=== PATIENT | male | born 1955 | race Caucasian/White ===

== ENCOUNTER 2017-06-24 16:56 | Emergency (ER) | payer BC ==
[2017-06-24] MEDS ORDERED: Aspirin 81 MG Tab.Chew PO ONE (17:20)
--- NOTE | 2017-06-24 17:28 | EDM.PDOC ---
ED HPI GENERAL MEDICAL PROBLEM - General Chief Complaint: Back Pain or Injury Stated Complaint: PT HAS BACK PAIN Time Seen by Provider: 06/24/17 17:11 Source of Information: Reports: Patient History Limitations: Reports: No Limitations - History of Present Illness INITIAL COMMENTS - FREE TEXT/NARRATIVE: HISTORY AND PHYSICAL: History of present illness: Patient is a 62-year-old male who presents to the emergency room with complaints of mid back pain. He reports that yesterday afternoon he had right anterior chest pain with some nausea that was mild but did not radiate. Woke up this morning and the pain is now in his back towards the left scapula, no nausea. Denies any recent injury or trauma. He states that "I was concerned because I haven't twisted or lifted anything heavy" and has no reason for the muscular pain to be present. Denies any numbness or tingling to his upper or lower extremities. The pain is reproducible and increased with palpation. Denies any fever or chills. Denies shortness of breath. Denies any abdominal pain, nausea, vomiting or diarrhea. 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 Recently saw Dr. Hall at [facility] a few weeks ago and had a full assessment/evaluation. Patient reports that "everything looks good". Takes a 81 mg aspirin daily, did not take that today. Took ibuprofen prior to arrival. Review of systems: As per history of present illness and below otherwise all systems reviewed and negative. Past medical history: As per history of present illness and as reviewed below otherwise noncontributory. Surgical history: As per history of present illness and as reviewed below otherwise noncontributory. Social history: No reported history of drug or alcohol abuse. Family history: As per history of present illness and as reviewed below otherwise noncontributory. Physical exam: Gen.: Nontoxic-appearing 62-year-old male. Well-developed and well-nourished. Alert and oriented. Appears to be in no acute distress. HEENT: Atraumatic, normocephalic, pupils reactive, negative for conjunctival pallor or scleral icterus, mucous membranes moist, throat clear, neck supple, nontender, trachea midline. Lungs: Clear to auscultation, breath sounds equal bilaterally, chest nontender. Heart: S1S2, regular rate and rhythm. Abdomen: Soft, nondistended, nontender. Negative for masses or hepatosplenomegaly. Negative for costovertebral tenderness. Pelvis: Stable nontender. Genitourinary: Deferred. Rectal: Deferred. Extremities: Atraumatic, negative for cords or calf pain. Neurovascular unremarkable. Neuro: Awake, alert, oriented. Cranial nerves II through XII unremarkable. Cerebellum unremarkable. Motor and sensory unremarkable throughout. Exam nonfocal. Labs, EKG, chest x-ray were reviewed with the patient. The patient's health history and presentation today I did offer him admission to rule out SC. Patient declined, he and his both states they feel comfortable going home. We did review risks versus benefits going home. Patient and voice understanding. I do believe that his pain is related to muscular strain. We'll give him one tablet of Flexeril here, as the procedure currently closed. And a prescription for #8 tablets will be prescribed for home. He will follow-up with his primary care provider in the next 1-2 days. He is agreeable to plan of care denies any further questions at this time. Diagnostics: CBC, CMP, troponin, EKG, one view chest x-ray Therapeutics: Aspirin Impression: Muscular strain History of heart disease Plan: 1. You declined admission today. Please monitor your symptoms. Please call an ambulance if your symptoms return or worsen as we discussed. 2. Please take the Flexeril as prescribed. Do not take this medication while needing to drive or function at work as it may cause drowsiness. Apply gentle heat to the area and gentle stretching. 2. Follow-up with your primary care provider in the next 1-2 days. Return to the ED as needed and as discussed. Definitive disposition and diagnosis as appropriate pending reevaluation and review of above. Duration: Day(s): Location: Reports: Back upper back Pain Score (Numeric/FACES): 6 - Related Data Allergies Allergy/AdvReac Type Severity Reaction Status Date / Time metoclopramide HCl Allergy Other Verified 06/24/17 17:04 [From Reglan] morphine Allergy Other Verified 06/24/17 17:04 Home Meds: Home Meds Aspirin [Low Dose Aspirin EC] 81 mg PO DAILY 08/19/14 [History] Atenolol 10 mg PO DAILY 08/19/14 [History] Calcium Carbonate [Calcium] 500 mg PO DAILY 08/19/14 [History] Cinnamon Bark [Cinnamon] 500 mg PO ASDIRECTED 08/19/14 [History] Fish Oil/[place]-3 Fatty Acids [Fish Oil 1,000 MG] 4 tab PO DAILY 08/19/14 [ History] Flaxseed Oil [Flax Oil] 2,000 mg PO DAILY 08/19/14 [History] Magnesium Oxide [Magnesium] 500 mg PO DAILY 08/19/14 [History] Multivitamin [Multivitamins] 1 tab PO DAILY 08/19/14 [History] [place] Extract 250 mg PO DAILY 08/19/14 [History] Tadalafil [Cialis] 1 tab PO ASDIRECTED PRN 08/19/14 [History] Vitamin B Complex 1 tab PO DAILY 08/19/14 [History] atorvaSTATin [Lipitor] 40 mg PO DAILY 08/19/14 [History] Lisinopril 10 mg PO DAILY 06/24/17 [History] Past Medical History Other HEENT History: Tinnitus Cardiovascular History: Reports: Bypass, High Cholesterol, Hypertension, SC Respiratory History: Reports: Other (See Below) Other Respiratory History: Denies any history reports 13 yr history smoking QUIT ' Gastrointestinal History: Reports: GERD Other Gastrointestinal History: Occasional heartburn treat with OTC Pepcid, gastroenteritis Genitourinary History: Reports: Other (See Below) Other Genitourinary History: Erectial Disorder Musculoskeletal History: Reports: Fracture Other Musculoskeletal History: hx: fracturing Right Leg and RIght arm, Nose and cracked some ribs Hematologic History: Reports: Anticoagulation Therapy - Infectious Disease History Infectious Disease History: Reports: Chicken Pox - Past Surgical History Cardiovascular Surgical History: Reports: Coronary Artery Bypass Musculoskeletal Surgical History: Reports: Knee Replacement Other Musculoskeletal Surgeries/Procedures:: broken hip Social & Family History - Family History Family Medical History: Noncontributory Cardiac: Reports: CAD, High Cholesterol, Hypertension, SC - Tobacco Use Smoking Status *Q: Never Smoker Years of Tobacco use: 27 - Caffeine Use Caffeine Use: Reports: None - Alcohol Use Days Per Week of Alcohol Use: 1 - Recreational Drug Use Recreational Drug Use: No Drug Use in Last 12 Months: No ED ROS GENERAL - Review of Systems Review Of Systems: ROS reveals no pertinent complaints other than HPI. ED EXAM, GENERAL - Physical Exam Exam: See Below (See dictation) Course - Vital Signs Last Recorded V/S: Last Vital Signs Temp 37.2 C 06/24/17 17:07 Pulse 84 06/24/17 17:07 Resp 18 06/24/17 17:07 BP 143/70 H 06/24/17 17:07 Pulse Ox 93 L 06/24/17 17:07 - Orders/Labs/Meds Orders: Active Orders 24 hr Category Date Time Status EKG Documentation Completion [RC] STAT Care 06/24/17 17:12 Active Chest 1V Frontal [CR] Stat Exams 06/24/17 17:12 Taken Cyclobenzaprine [Flexeril] Med 06/24/17 19:21 Once 10 mg PO ONETIME ONE Labs: Laboratory Tests 06/24/17 06/24/17 Range/Units 17:19 17:19 WBC 7.89 (4.0-11.0) K/uL RBC 4.92 (4.50-5.90) M/uL Hgb 14.5 (13.0-17.0) g/dL Hct 43.2 (38.0-50.0) % MCV 87.8 (80.0-98.0) fL MCH 29.5 (27.0-32.0) pg MCHC 33.6 (31.0-37.0) g/dL RDW Std Deviation 43.1 (28.0-62.0) fl RDW Coeff of Patricia 14 (11.0-15.0) % Plt Count 218 (150-400) K/uL MPV 10.50 (7.40-12.00) fL Neut % (Auto) 68.1 (48.0-80.0) % Lymph % (Auto) 19.8 (16.0-40.0) % Jennings % (Auto) 9.6 (0.0-15.0) % Eos % (Auto) 2.0 (0.0-7.0) % Baso % (Auto) 0.5 (0.0-1.5) % Neut # (Auto) 5.4 (1.4-5.7) K/uL Lymph # (Auto) 1.6 (0.6-2.4) K/uL Jennings # (Auto) 0.8 (0.0-0.8) K/uL Eos # (Auto) 0.2 (0.0-0.7) K/uL Baso # (Auto) 0.0 (0.0-0.1) K/uL Nucleated RBC % 0.0 /100WBC Nucleated RBCs # 0 K/uL Sodium 141 (136-146) mmol/L Potassium 4.0 (3.5-5.1) mmol/L Chloride 109 (98-110) mmol/L Carbon Dioxide 23 (21-31) mmol/L BUN 23 (6.0-23.0) mg/dL Creatinine 1.2 (0.6-1.5) mg/dL Est Cr Clr Drug Dosing 74.21 mL/min Estimated GFR (MDRD) > 60.0 ml/min Glucose 122 H (60-110) mg/dL Calcium 9.5 (8.8-10.8) mg/dL Total Bilirubin 1.3 (0.1-1.5) mg/dL AST 16 (5-40) IU/L ALT 13 (8-54) IU/L Alkaline Phosphatase 61 (40-150) Troponin I < 0.10 (0.0-0.29) NG/ML Total Protein 6.9 (6.0-8.0) g/dL Albumin 3.9 (3.4-4.8) g/dL Globulin 3.0 (2.0-3.5) g/dL Albumin/Globulin Ratio 1.3 (1.3-2.8) Meds: Medications Discontinued Medications Generic Name Dose Route Start Last Admin Trade Name Freq PRN Reason Stop Dose Admin Aspirin 324 mg 06/24/17 17:20 06/24/17 17:26 Aspirin PO 06/24/17 17:21 324 mg ONETIME ONE Administration Departure - Departure Time of Disposition: 19:20 Disposition: Home, Self-Care 01 Condition: Good Clinical Impression: Muscle strain, History of heart disease - Discharge Information Instructions: Muscle Strain, [id number] Referrals: PCP,None [Primary Care Provider] - Forms: ED Department Discharge Additional Instructions: My general discharge The following information is given to patients seen in the emergency department who are being discharged to home. This information is to outline your options for follow-up care. We provide all patients seen in our emergency department with a follow-up referral. The need for follow-up, as well as the timing and circumstances, are variable depending upon the specifics of your emergency department visit. If you don't have a primary care physician on staff, we will provide you with a referral. We always advise you to contact your personal physician following an emergency department visit to inform them of the circumstance of the visit and for follow-up with them and/or the need for any referrals to a consulting specialist. The emergency department will also refer you to a specialist when appropriate. This referral assures that you have the opportunity for follow-up care with a specialist. All of these measure are taken in an effort to provide you with optimal care, which includes your follow-up. Under all circumstances we always encourage you to contact your private physician who remains a resource for coordinating your care. When calling for follow-up care, please make the office aware that this follow-up is from your recent emergency room visit. If for any reason you are refused follow-up, please contact the Emergency Department at and asked to speak to the emergency department charge nurse. Primary Care [address] [place] [address] 1. You declined admission today. Please monitor your symptoms. Please call an ambulance if your symptoms return or worsen as we discussed. 2. Please take the Flexeril as prescribed. Do not take this medication while needing to drive or function at work as it may cause drowsiness. Apply gentle heat to the area and gentle stretching. 2. Follow-up with your primary care provider in the next 1-2 days. Return to the ED as needed and as discussed. - My Orders Last 24 Hours: My Active Orders 06/24/17 17:12 EKG Documentation Completion [RC] STAT Chest 1V Frontal [CR] Stat 06/24/17 19:21 Cyclobenzaprine [Flexeril] 10 mg PO ONETIME ONE - Assessment/Plan Last 24 Hours: My Active Orders 06/24/17 17:12 EKG Documentation Completion [RC] STAT Chest 1V Frontal [CR] Stat 06/24/17 19:21 Cyclobenzaprine [Flexeril] 10 mg PO ONETIME ONE
[2017-06-24 17:44] LABS: CHLORIDE,CL 109 mmol/L (98-110); SODIUM,NA 141 mmol/L (136-146)
[2017-06-24] MEDS ORDERED: Cyclobenzaprine 10 MG Tab PO ONE (19:21)
[2017-06-24 19:51] VITALS: BP 118/75
--- NOTE | 2017-06-25 16:18 | CR ---
EXAM DATE: 06/24/17 PATIENT'S AGE: 62 Patient: GRETA RIDLEY Facility: [place], [place] Site . Site : 1955 Study: XRay Chest [id number] 6:11:47 PM Ordering Physician: Doctor Jenkins Final Report: INDICATION: upper back pain TECHNIQUE: Chest radiograph 1 view COMPARISON: None FINDINGS: Moderate degradation of image quality noted due to body habitus. Cardiovascular and mediastinum: The cardiac silhouette is normal in appearance and size. Mediastinum is within normal limits. Previous median sternotomy and coronary artery bypass grafting (CABG) noted. Lungs and pleural spaces: Both lungs are unremarkable in appearance. No sign of pleural effusion. No pneumothorax is seen. Bones and soft tissues: No significant findings. IMPRESSION: 1. No acute cardiopulmonary disease seen. Dictated by: Gary Velazco MD @ 06/24/2017 18:45:04 (Electronic Signature) Report Signed by Proxy. ZOEY
== END 2017-06-24 20:04 | disposition home or self-care (01) ==
LOC: MW.ED 16:56
DX: S29.012A Strain of muscle and tendon of back wall of thorax, initial encounter (principal); I11.9 Hypertensive heart disease without heart failure; Z88.5 Allergy status to narcotic agent; Z88.8 Allergy status to other drugs, medicaments and biological substances; Z79.82 Long term (current) use of aspirin; Z79.899 Other long term (current) drug therapy; X58.XXXA Exposure to other specified factors, initial encounter
CPT/HCPCS: 36415; 71010; 80053; 84484; 85025; 93005; 99284; A9270; 99282

== ENCOUNTER 2018-01-17 10:21 | Day surgery (SDC) | payer BC ==
[~2018-01-17 10:21] MED LIST: Lactated Ringers 1,000 ML IV SCH; Midazolam 1 MG/ML 2 ML SDV ONE; Propofol 200 MG/20 ML SDV ONE; fentaNYL 100 MCG/2 ML SDV ONE
--- NOTE | 2018-01-17 10:57 | PCM.PREANE ---
Preanesthetic Assessment - Anesthesia/Transfusion/Family Hx Anesthesia History: Prior Anesthesia Without Reaction Other Type of Anesthesia Reaction Comment: Denies any known problem in past, "mild problem with motion sickness" Family History of Anesthesia Reaction: No Transfusion History: Prior Transfusion Without Reaction Intubation History: Unknown - Review of Systems General: No Symptoms Pulmonary: No Symptoms Cardiovascular: No Symptoms Gastrointestinal: No Symptoms, Other (screening colonoscopy) Neurological: No Symptoms Other: Reports: None - Physical Assessment Height: 1.88 m Weight: 127.006 kg ASA Class: 2 Mental Status: Alert & Oriented x3 Airway Class: Mallampati = 2 Dentition: Reports: Normal Dentition Thyro-Mental Finger Breadths: 3 Mouth Opening Finger Breadths: 3 ROM/Head Extension: Full Lungs: Clear to Auscultation, Normal Respiratory Effort Cardiovascular: Regular Rate, Regular Rhythm - Allergies Allergies/Adverse Reactions: Allergies Allergy/AdvReac Type Severity Reaction Status Date / Time metoclopramide HCl Allergy Other Verified 01/14/18 09:33 [From Reglan] morphine Allergy Other Verified 01/14/18 09:33 - Blood Blood Available: No - Anesthesia Plan Pre-Op Medication Ordered: None - Acknowledgements Anesthesia Type Planned: MAC Pt an Appropriate Candidate for the Planned Anesthesia: Yes Alternatives and Risks of Anesthesia Discussed w Pt/Guardian: Yes Pt/Guardian Understands and Agrees with Anesthesia Plan: Yes PreAnesthesia Questionnaire HEENT History: Reports: Other (See Below) Other HEENT History: wears glasses Cardiovascular History: Reports: Bypass, CAD, High Cholesterol, Hypertension, DC Other Cardiovascular History: CABG 1998 Respiratory History: Reports: Sleep Apnea, Other (See Below) Other Respiratory History: uses CPAP Gastrointestinal History: Reports: None Genitourinary History: Reports: None Musculoskeletal History: Reports: Arthritis, Fracture Other Musculoskeletal History: hx: fracturing Right Leg and RIght arm, Nose and cracked some ribs Endocrine/Metabolic History: Reports: Obesity/BMI 30+ Hematologic History: Reports: Blood Transfusion(s), Other (See Below) Other Hematologic History: states "bleeds easily" - Infectious Disease History Infectious Disease History: Reports: Chicken Pox - Past Surgical History Head Surgeries/Procedures: Reports: None Cardiovascular Surgical History: Reports: Coronary Artery Bypass Other Cardiovascular Surgeries/Procedures: 3 bypasses Musculoskeletal Surgical History: Reports: Knee Replacement Other Musculoskeletal Surgeries/Procedures:: broken hip, left knee replacement - SUBSTANCE USE Smoking Status *Q: Former Smoker Tobacco Use Within Last Twelve Months: No Other Tobacco Use Within Last Twelve Months: SMoked for about 13 yrs, QUIT '87 Days Per Week of Alcohol Use: 1 Recreational Drug Use History: No - HOME MEDS Home Medications: Home Meds Aspirin [Low Dose Aspirin EC] 81 mg PO DAILY 08/19/14 [History] Atenolol 12.5 mg PO BEDTIME 08/19/14 [History] Calcium Carbonate [Calcium] 500 mg PO DAILY 08/19/14 [History] Cinnamon Bark [Cinnamon] 500 mg PO ASDIRECTED 08/19/14 [History] Fish Oil/[place]-3 Fatty Acids [Fish Oil 1,000 MG] 4 tab PO DAILY 08/19/14 [ History] Flaxseed Oil [Flax Oil] 1,200 mg PO DAILY 08/19/14 [History] Magnesium Oxide [Magnesium] 500 mg PO DAILY 08/19/14 [History] Multivitamin [Multivitamins] 1 tab PO DAILY 08/19/14 [History] [place] Extract 250 mg PO DAILY 08/19/14 [History] Tadalafil [Cialis] 1 tab PO ASDIRECTED PRN 08/19/14 [History] Vitamin B Complex 1 tab PO DAILY 08/19/14 [History] atorvaSTATin [Lipitor] 40 mg PO DAILY 08/19/14 [History] Lisinopril 10 mg PO DAILY 06/24/17 [History] - CURRENT (IN HOUSE) MEDS Current Meds: Current Medications Lactated Ringer's (Ringers, Lactated) 1,000 mls @ 125 mls/hr IV ASDIRECTED GENTRY Discontinued Medications Fentanyl (Sublimaze) Confirm Administered Dose 100 mcg .ROUTE .STK-MED ONE Stop: 01/17/18 08:46 Midazolam HCl (Versed 1 Mg/Ml) Confirm Administered Dose 2 mg .ROUTE .STK-MED ONE Stop: 01/17/18 08:46 Propofol (Diprivan 20 Ml) Confirm Administered Dose 200 mg .ROUTE .STK-MED ONE Stop: 01/17/18 08:46
[2018-01-17] MEDS ORDERED: Propofol 200 MG/20 ML SDV ONE (11:19)
--- NOTE | 2018-01-17 11:43 | PCM.OPNOTE ---
- General Post-Op/Procedure Note Date of Surgery/Procedure: 01/17/18 Operative Procedure(s): colonoscopy w bx Findings: see dict [id number] Pre Op Diagnosis: scrn colonoscopy Post-Op Diagnosis: Same Anesthesia Technique: Moderate Sedation Primary Surgeon: Fox Hill Pathology: 2 mm sessile polyp at dist 80cm, 90cm when scope went out; and aphthus ulcer bx at rectum, and anal tag bx at annus Complications: None Condition: Good
--- NOTE | 2018-01-17 11:46 | PCM.POSTAN ---
POST ANESTHESIA ASSESSMENT - MENTAL STATUS Mental Status: Alert, Oriented - RESPIRATORY Respiratory Status: Respiratory Rate WNL, Airway Patent, O2 Saturation Stable - CARDIOVASCULAR CV Status: Pulse Rate WNL, Blood Pressure Stable - GASTROINTESTINAL GI Status: No Symptoms - POST OP HYDRATION Hydration Status: Adequate & Stable
--- NOTE | 2018-01-17 12:13 | PCM48HPAN ---
Post Anesthesia Note - EVALUATION WITHIN 48HRS OF ANESTHETIC Vital Signs in Normal Range: Yes Patient Participated in Evaluation: Yes Respiratory Function Stable: Yes Airway Patent: Yes Cardiovascular Function Stable: Yes Hydration Status Stable: Yes Pain Control Satisfactory: Yes Nausea and Vomiting Control Satisfactory: Yes Mental Status Recovered: Yes Resp Rate: 8 - COMMENTS/OBSERVATIONS Free Text/Narrative:: no anesthesia problems
[2018-01-17 12:34] VITALS: BP 103/63
--- NOTE | 2018-01-17 13:16 | OR ---
SURGEON: Fox Hill MD DATE OF PROCEDURE: 01/17/2018 PREOPERATIVE DIAGNOSIS: Screening colonoscopy. POSTOPERATIVE DIAGNOSIS: Colon polyp. PROCEDURE PERFORMED: Colonoscopy with biopsy. PROCEDURE IN DETAIL: The patient was taken to the endoscopy room. A time out was called, patient identified, and procedure identified. Diprivan was then administrated. Patient went from awake to sleep, hearing doctor talking or door closing is normal. Perineum inspection and digital examination were then performed. A well- lubricated colonoscope was gently inserted through the rectum, advanced past the rectosigmoid junction, the descending colon, splenic flexure, transverse colon, hepatic flexure, ascending colon, arrived to the cecum. Cecum was identified as dictated in the finding. Then the scope was carefully withdrawn while attention was paid to the mucosal surface for any abnormality. Air will be sucked out during the scope withdrawal. At the rectum, retroflexed to examine any rectal diseases, fistula or hemorrhoids. During mucosal examination, biopsy performed. Patient tolerated procedure well. There were no intraoperative complications, and Dr. Hill was present throughout the whole procedure. FINDINGS: 1. The patient is easily sedated with REFINING ENGINEER and Diprivan. The patient is soundly snoring. 2. Bowel prep is left to be desirable, marginally acceptable. Large amount of particles of stool is opaque and compromised study because of the bowel prep. Colon is rather straight forward. Cecum indicated by ileocecal fold, one-to-one indentation, and appendiceal orifice. Light emittance is not observed. Mucosa examined upon scope pulling out with constant irrigation. The patient has two small polyp sessile less than 1 to 2 mm at distance 80 and 90 cm when scope pulling out. Again, this is compromised study because they are many many particles of stool opaque and compromised study and despite constant irrigation. The two polyps mentioned are removed with cold biopsy forceps. There was no diverticulosis inflammation, ulceration, bleeding, AV malformation, growth, mass, none of those. The patient has external hemorrhoid moderate and also semi large and no tag that was biopsied too; and at the end around 20 cm distance of the scope close to the rectum area, there are several aphthous ulcers and were biopsied to evaluate thing, favorable. The patient will repeat colonoscopy in 10 years from today or if clinically indicated otherwise. ROYA / MARK /[id number]
== END 2018-01-17 12:00 | disposition home or self-care (01) ==
LOC: MW.SDS 10:21
PROVIDERS: ATTEND Surgery
DX: Z12.11 Encounter for screening for malignant neoplasm of colon (principal); D12.4 Benign neoplasm of descending colon; D12.3 Benign neoplasm of transverse colon; K63.89 Other specified diseases of intestine; K64.4 Residual hemorrhoidal skin tags; I10 Essential (primary) hypertension; I25.10 Atherosclerotic heart disease of native coronary artery without angina pectoris; I25.2 Old myocardial infarction; E78.00 Pure hypercholesterolemia, unspecified; G47.30 Sleep apnea, unspecified; Z99.89 Dependence on other enabling machines and devices; M19.90 Unspecified osteoarthritis, unspecified site; Z79.82 Long term (current) use of aspirin; Z79.899 Other long term (current) drug therapy; Z88.5 Allergy status to narcotic agent; Z88.8 Allergy status to other drugs, medicaments and biological substances
CPT/HCPCS: 45380; J2250; J3010; J7120; 00811; J2704

== ENCOUNTER 2019-11-19 01:31 | Observation (INO) | payer BC ==
[2019-11-19] MEDS ORDERED: Sodium Chloride 0.9% 2.5 ML Syringe FLUSH PRN (01:40)
[2019-11-19] MEDS ORDERED: Sodium Chloride 0.9% 10 ML Syringe FLUSH PRN (01:40)
[2019-11-19] MEDS ORDERED: Aspirin 81 MG Tab.Chew PO ONE (01:40)
--- NOTE | 2019-11-19 01:47 | EDM.PDOC ---
ED HPI GENERAL MEDICAL PROBLEM - General Chief Complaint: Chest Pain Stated Complaint: CHEST PAIN Time Seen by Provider: 11/19/19 01:32 Source of Information: Reports: Patient History Limitations: Reports: No Limitations - History of Present Illness INITIAL COMMENTS - FREE TEXT/NARRATIVE: HISTORY OF PRESENT ILLNESS: Patient is a 64-year-old male with history of coronary artery disease status post three-vessel CABG in 1998, hypertension, hyperlipidemia who presents the ER with chest pain. Patient states that he had left parasternal chest pain on Sunday night into Sunday morning which resolved spontaneously. This evening at approximately 10:30 pm began having right lateral mid axillary chest pain which is waxing and waning in nature and was 8 out of 10 at maximal severity and presently 4 out of 10 in severity. He took aspirin 81 mg. Denies any associated dyspnea, nausea, vomiting, or diaphoresis. Patient has a family history of coronary artery disease. He is not a smoker. Denies any abdominal pain or syncope. No recent illness. Has otherwise been in normal state of health. No recent trauma Denies any leg pain, unilateral swelling or history of thromboembolic disease. REVIEW OF SYSTEMS: Other than the symptoms associated with the present events, the following is reported with regard to recent health: General: (-) fever. HENT: (-) congestion. Respiratory: (-) cough. Cardiovascular: (-) chest pain. GI: (-) abdominal pain. : (-) urinary complaints. Musculoskeletal: (-) other aches or pains. Endocrine: (-) generalized weakness. Neurological: (-) localized weakness. Skin: (-) rash PAST MEDICAL HISTORY: reviewed as per nursing notes SOCIAL HISTORY: reviewed as per nursing notes, MEDICATIONS: Per nurse's note ALLERGIES: Per nurse's note, reviewed by me PHYSICAL EXAMINATION: GENERALIZED APPEARANCE: well developed, well nourished in mild distress VITAL SIGNS: Per nurse's note, reviewed by me SKIN: Warm, dry; (-) cyanosis; (-) rash. HEAD: (-) scalp swelling, (-) tenderness. EYES: (-) conjunctival pallor, (-) scleral icterus. ENMT: (-) stridor; mucous membranes moist. NECK: (-) tenderness, (-) stiffness, CHEST AND RESPIRATORY: (-) rales, (-) rhonchi, (-) wheezes; breath sounds equal bilaterally. right midaxillary chest wall tenderness. no crepitus. HEART AND CARDIOVASCULAR: (-) irregularity; (-) murmur, (-) gallop. ABDOMEN AND GI: Soft; (-) tenderness, (-) guarding, (-) rebound, (-) palpable masses, EXTREMITIES: (-) deformity, (-) edema. NEURO AND PSYCH: Alert. Cranial nerves grossly intact; strength symmetric. gait steady DIAGNOSTICS: EKG: sr at [address] elevation. t wave inversion iii avf. CXR: as read by radiologist, reviewed by myself Labs ordered and reviewed, troponin wnl EMERGENCY DEPARTMENT COURSE AND TREATMENT: Patient's condition remained stable during Emergency Department evaluation. Given remaining 243 mg of ASA for a total dose of 324 mg this evening. Given NTG 0.4 mg SL. First troponin negative and EKG without acute MOIZ. Case discussed with Dr. Francis who kindly agrees to admit. PLAN AND FOLLOW-UP: Admit chest Pain Score (Numeric/FACES): 4 - Related Data Allergies Allergy/AdvReac Type Severity Reaction Status Date / Time metoclopramide HCl Allergy Other Verified 11/19/19 01:49 [From Reglan] morphine Allergy Other Verified 11/19/19 01:49 Home Meds: Home Meds Calcium Carbonate [Calcium] 500 mg PO DAILY 08/19/14 [History] Cinnamon Bark [Cinnamon] 500 mg PO ASDIRECTED 08/19/14 [History] Fish Oil/[place]-3 Fatty Acids [Fish Oil 1,000 MG] 1 gm PO DAILY 08/19/14 [History ] Flaxseed Oil [Flax Oil] 1,000 mg PO DAILY 08/19/14 [History] Magnesium Oxide [Magnesium] 500 mg PO DAILY 08/19/14 [History] Multivitamin [Multivitamins] 1 tab PO DAILY 08/19/14 [History] [place] Extract 250 mg PO DAILY 08/19/14 [History] Vitamin B Complex 1 tab PO DAILY 08/19/14 [History] atenoloL [Atenolol] 12.5 mg PO BEDTIME 08/19/14 [History] atorvaSTATin [Lipitor] 40 mg PO BEDTIME 08/19/14 [History] Lisinopril 10 mg PO QPM 06/24/17 [History] Past Medical History HEENT History: Reports: Other (See Below) Other HEENT History: wears glasses Cardiovascular History: Reports: Bypass, CAD, High Cholesterol, Hypertension, [place] Other Cardiovascular History: CABG 1998 Respiratory History: Reports: Sleep Apnea, Other (See Below) Other Respiratory History: uses CPAP Gastrointestinal History: Reports: None Genitourinary History: Reports: None Musculoskeletal History: Reports: Arthritis, Fracture Other Musculoskeletal History: hx: fracturing Right Leg and RIght arm, Nose and cracked some ribs Endocrine/Metabolic History: Reports: Obesity/BMI 30+ Hematologic History: Reports: Blood Transfusion(s), Other (See Below) Other Hematologic History: states "bleeds easily" - Infectious Disease History Infectious Disease History: Reports: Chicken Pox - Past Surgical History Head Surgeries/Procedures: Reports: None Cardiovascular Surgical History: Reports: Coronary Artery Bypass Other Cardiovascular Surgeries/Procedures: OLIVIER 3 bypasses Musculoskeletal Surgical History: Reports: Knee Replacement Other Musculoskeletal Surgeries/Procedures:: broken hip, left knee replacement Social & Family History - Family History Family Medical History: Noncontributory Cardiac: Reports: CAD, High Cholesterol, Hypertension, [place] - Caffeine Use Caffeine Use: Reports: None ED ROS GENERAL - Review of Systems Review Of Systems: See Below (see dictation) ED EXAM, GENERAL - Physical Exam Exam: See Below (see dictation) Course - Vital Signs Last Recorded V/S: Last Vital Signs Temp 96.5 F L 11/19/19 01:31 Pulse 73 11/19/19 01:46 Resp 18 11/19/19 01:46 BP 136/81 11/19/19 01:46 Pulse Ox 96 11/19/19 01:46 - Orders/Labs/Meds Orders: Active Orders 24 hr Category Date Time Status Cardiac Monitoring [RC] . DIRECTED Care 11/19/19 01:40 Active EKG Documentation Completion [RC] STAT Care 11/19/19 01:40 Active Pulse Oximetry [RC] ASDIRECTED Care 11/19/19 01:40 Active COMPREHENSIVE METABOLIC PN,CMP [CHEM] Stat Lab 11/19/19 01:42 Results TROPONIN I [CHEM] Stat Lab 11/19/19 01:42 Results Sodium Chloride 0.9% [Saline Flush] Med 11/19/19 01:40 Active 10 ml FLUSH ASDIRECTED PRN Sodium Chloride 0.9% [Saline Flush] Med 11/19/19 01:40 Active 2.5 ml FLUSH ASDIRECTED PRN Saline Lock Insert [OM.PC] Stat Oth 11/19/19 01:40 Ordered Medication Orders Sodium Chloride (Saline Flush) 10 ml FLUSH ASDIRECTED PRN PRN Reason: Keep Vein Open Sodium Chloride (Saline Flush) 2.5 ml FLUSH ASDIRECTED PRN PRN Reason: Keep Vein Open Labs: Laboratory Tests 11/19/19 11/19/19 Range/Units 01:42 01:42 WBC 9.28 (4.0-11.0) K/uL RBC 4.97 (4.50-5.90) M/uL Hgb 14.4 (13.0-17.0) g/dL Hct 44.0 (38.0-50.0) % MCV 88.5 (80.0-98.0) fL MCH 29.0 (27.0-32.0) pg MCHC 32.7 (31.0-37.0) g/dL RDW Std Deviation 43.2 (28.0-62.0) fl RDW Coeff of Patricia 13 (11.0-15.0) % Plt Count 232 (150-400) K/uL MPV 11.30 (7.40-12.00) fL Neut % (Auto) 53.3 (48.0-80.0) % Lymph % (Auto) 33.3 (16.0-40.0) % [place] % (Auto) 10.9 (0.0-15.0) % Eos % (Auto) 1.9 (0.0-7.0) % Baso % (Auto) 0.6 (0.0-1.5) % Neut # (Auto) 4.9 (1.4-5.7) K/uL Lymph # (Auto) 3.1 H (0.6-2.4) K/uL [place] # (Auto) 1.0 H (0.0-0.8) K/uL Eos # (Auto) 0.2 (0.0-0.7) K/uL Baso # (Auto) 0.1 (0.0-0.1) K/uL Nucleated RBC % 0.0 /100WBC Nucleated RBCs # 0 K/uL Sodium 141 (136-148) mmol/L Potassium 3.8 (3.5-5.1) mmol/L Chloride 103 (98-107) mmol/L Carbon Dioxide 25.7 (21.0-32.0) mmol/L BUN 28 H (7.0-18.0) mg/dL Creatinine 1.4 H (0.8-1.3) mg/dL Est Cr Clr Drug Dosing 58.51 mL/min Estimated GFR (MDRD) 51.0 ml/min Glucose 134 H (74-106) mg/dL Calcium 8.9 (8.5-10.1) mg/dL Total Bilirubin 0.7 (0.2-1.0) mg/dL ALT 27 (14-63) IU/L Alkaline Phosphatase 70 (46-116) U/L Troponin I < 0.050 (0.000-0.056) ng/mL Total Protein 6.6 (6.4-8.2) g/dL Albumin 3.3 L (3.4-5.0) g/dL Globulin 3.3 (2.6-4.0) g/dL Albumin/Globulin Ratio 1.0 (0.9-1.6) Meds: Medications Generic Name Dose Route Start Last Admin Trade Name Freq PRN Reason Stop Dose Admin Sodium Chloride 10 ml 11/19/19 01:40 Saline Flush FLUSH ASDIRECTED PRN Keep Vein Open Sodium Chloride 2.5 ml 11/19/19 01:40 Saline Flush FLUSH ASDIRECTED PRN Keep Vein Open Discontinued Medications Generic Name Dose Route Start Last Admin Trade Name Freq PRN Reason Stop Dose Admin Aspirin 243 mg 11/19/19 01:40 11/19/19 01:45 Aspirin PO 11/19/19 01:41 243 mg ONETIME ONE Administration Nitroglycerin 0.4 mg 11/19/19 02:20 Nitrostat SL 11/19/19 02:21 ONETIME ONE Departure - Departure Time of Disposition: 02:31 Disposition: Refer to Observation Condition: Good Clinical Impression: Chest pain - Discharge Information Forms: ED Department Discharge Sepsis Event Note - Focused Exam Vital Signs: Vital Signs Temp Pulse Resp BP BP Pulse Ox 11/19/19 01:46 73 18 136/81 96 11/19/19 01:31 96.5 F L 73 20 153/94 H 96 Date Exam was Performed: 11/19/19 Time Exam was Performed: 02:22 - My Orders Last 24 Hours: My Active Orders 11/19/19 01:40 Cardiac Monitoring [RC] . DIRECTED EKG Documentation Completion [RC] STAT Pulse Oximetry [RC] ASDIRECTED Sodium Chloride 0.9% [Saline Flush] 10 ml FLUSH ASDIRECTED PRN Sodium Chloride 0.9% [Saline Flush] 2.5 ml FLUSH ASDIRECTED PRN Saline Lock Insert [OM.PC] Stat 11/19/19 01:42 COMPREHENSIVE METABOLIC PN,CMP [CHEM] Stat TROPONIN I [CHEM] Stat - Assessment/Plan Last 24 Hours: My Active Orders 11/19/19 01:40 Cardiac Monitoring [RC] . DIRECTED EKG Documentation Completion [RC] STAT Pulse Oximetry [RC] ASDIRECTED Sodium Chloride 0.9% [Saline Flush] 10 ml FLUSH ASDIRECTED PRN Sodium Chloride 0.9% [Saline Flush] 2.5 ml FLUSH ASDIRECTED PRN Saline Lock Insert [OM.PC] Stat 11/19/19 01:42 COMPREHENSIVE METABOLIC PN,CMP [CHEM] Stat TROPONIN I [CHEM] Stat
--- NOTE | 2019-11-19 02:01 | CR ---
INDICATION: Chest pain TECHNIQUE: Frontal view of the chest. COMPARISON: None FINDINGS: The lungs are clear. There is no sizable pleural effusion or pneumothorax. The cardiomediastinal silhouette is normal. Sternotomy wires and mediastinal clips are noted, suggesting prior CABG. IMPRESSION: No acute intrathoracic process. Dictated by Marjan Dee MD @ Nov 19 2019 2:00AM Signed by Dr. Marjan Dee @ Nov 19 2019 2:00AM
[2019-11-19 02:14] LABS: BLOOD UREA NITROGEN,BUN 28 mg/dL (7.0-18.0); CARBON DIOXIDE,CO2 25.7 mmol/L (21.0-32.0); CHLORIDE,CL 103 mmol/L (98-107); GLUCOSE RANDOM 134 mg/dL (74-106); POTASSIUM,K 3.8 mmol/L (3.5-5.1); SODIUM,NA 141 mmol/L (136-148)
[2019-11-19] MEDS ORDERED: Nitroglycerin 0.4 MG Tab.SL SL ONE (02:20)
[2019-11-19] MEDS ORDERED: Acetaminophen 325 MG Tab PO PRN (03:10)
[2019-11-19 08:57] LABS: HEMOGLOBIN A1C 5.9 % (4.5-6.2)
--- NOTE | 2019-11-19 09:10 | PCM.HP.2 ---
H&P History of Present Illness - General Date of Service: 11/19/19 Admit Problem/Dx: Admission Diagnosis/Problem Admission Diagnosis/Problem Chest pain Source of Information: Patient History Limitations: Reports: No Limitations - History of Present Illness Initial Comments - Free Text/Narative: This 64 year old male with pmh of 3 vessel CABG in 1998, HTN, HLD, CAD presented to the ED with complaints of chest pain that started initially Sunday evening. He reports the pain is waxing and waning and has moved from initially L chest and axilla to upper back and neck to now R axilla. Axilla regions are tender to movement and palpation per his reports. He denies other associated symptoms such as diaphoresis, dyspnea or nausea. Denies injury or repetitive movements. He denies abdominal pain, diarrhea or constipation. He denies focal neurological deficits. He denies fevers, chills, congestion or URI symptoms. No cough or dyspnea. He denies tobacco use, rare alcohol use, and no recreational drug use. In the ED no leukocytosis noted, BUN 28 and Cr 1.4. Glucose 134, A1c 5.9. Troponin negative. EKG SR with no acute ST changes. He was given ASA in the ED and Nitro SL. No real improvement in pain. He will be admitted for chest pain rule out ACS. 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 Pain Score (Numeric/FACES): 4 R mid axilla Pain Score (Numeric/FACES): 2 - Related Data Allergies/Adverse Reactions: Allergies Allergy/AdvReac Type Severity Reaction Status Date / Time metoclopramide HCl Allergy Other Verified 11/19/19 01:49 [From Reglan] morphine Allergy Other Verified 11/19/19 01:49 Home Medications: Home Meds Calcium Carbonate [Calcium] 500 mg PO DAILY 08/19/14 [History] Cinnamon Bark [Cinnamon] 500 mg PO ASDIRECTED 08/19/14 [History] Fish Oil/[place]-3 Fatty Acids [Fish Oil 1,000 MG] 1 gm PO DAILY 08/19/14 [History ] Flaxseed Oil [Flax Oil] 1,000 mg PO DAILY 08/19/14 [History] Magnesium Oxide [Magnesium] 500 mg PO DAILY 08/19/14 [History] Multivitamin [Multivitamins] 1 tab PO DAILY 08/19/14 [History] [place] Extract 250 mg PO DAILY 08/19/14 [History] Vitamin B Complex 1 tab PO DAILY 08/19/14 [History] atenoloL [Atenolol] 12.5 mg PO BEDTIME 08/19/14 [History] atorvaSTATin [Lipitor] 40 mg PO BEDTIME 08/19/14 [History] Lisinopril 10 mg PO QPM 06/24/17 [History] Past Medical History HEENT History: Reports: Other (See Below) Other HEENT History: wears glasses Cardiovascular History: Reports: Bypass, CAD, High Cholesterol, Hypertension, [place]. Denies: Afib Other Cardiovascular History: CABG 1998 Respiratory History: Reports: Sleep Apnea, Other (See Below) Other Respiratory History: uses CPAP Gastrointestinal History: Reports: None Genitourinary History: Reports: None Musculoskeletal History: Reports: Arthritis, Fracture Other Musculoskeletal History: hx: fracturing Right Leg and RIght arm, Nose and cracked some ribs Endocrine/Metabolic History: Reports: Obesity/BMI 30+ Hematologic History: Reports: Blood Transfusion(s), Other (See Below) Other Hematologic History: had BT post Surgery - Infectious Disease History Infectious Disease History: Reports: Chicken Pox - Past Surgical History Head Surgeries/Procedures: Reports: None Cardiovascular Surgical History: Reports: Coronary Artery Bypass Other Cardiovascular Surgeries/Procedures: CABG 3 vessels Respiratory Surgical History: Reports: None Musculoskeletal Surgical History: Reports: Knee Replacement Other Musculoskeletal Surgeries/Procedures:: broken hip, left knee replacement Social & Family History - Family History Family Medical History: Noncontributory Cardiac: Reports: CAD, High Cholesterol, Hypertension, [place] - Tobacco Use Smoking Status *Q: Former Smoker Years of Tobacco use: 10 Packs/Tins Daily: 1 Used Tobacco, but Quit: Yes Month/Year Tobacco Last Used: 1986 Second Hand Smoke Exposure: No - Caffeine Use Caffeine Use: Reports: None - Alcohol Use Alcohol Use History: No - Recreational Drug Use Recreational Drug Use: No H&P Review of Systems - Review of Systems: Review Of Systems: See Below General: Denies: Fever, Chills, Malaise, Weakness HEENT: Reports: No Symptoms. Denies: Headaches, Sore Throat, Vertigo Pulmonary: Reports: No Symptoms. Denies: Shortness of Breath, Cough, Sputum Cardiovascular: Reports: No Symptoms. Denies: Chest Pain, Dyspnea on Exertion, Orthopnea, Edema Gastrointestinal: Reports: No Symptoms. Denies: Abdominal Pain, Black Stool, Bloody Stool, Hematochezia, Nausea Genitourinary: Reports: No Symptoms. Denies: Dysuria, Frequency Musculoskeletal: Reports: Neck Pain (upper back and R and L axilla) Psychiatric: Reports: No Symptoms Neurological: Reports: No Symptoms Hematologic/Lymphatic: Reports: No Symptoms Immunologic: Reports: No Symptoms Exam - Exam Exam: See Below - Vital Signs Vital Signs: Last Vital Signs Temp 97.1 F 11/19/19 03:01 Pulse 68 11/19/19 08:15 Resp 16 11/19/19 08:15 BP 106/58 L 11/19/19 08:15 Pulse Ox 95 11/19/19 08:15 Weight: 128.548 kg - Exam General: Alert, Oriented, Cooperative HEENT: Conjunctiva Clear, Mucosa Moist & [place], Pupils Equal Neck: Supple, Other (no nuchal rigidity) Lungs: Clear to Auscultation, Normal Respiratory Effort Cardiovascular: Regular Rate, Regular Rhythm GI/Abdominal Exam: Normal Bowel Sounds, Soft, Non-Tender Extremities: Normal Inspection, Normal Range of Motion, No Pedal Edema, Other ( tenderness to R and L axilla and upper back/neck. ) Neuro Extensive - Mental Status: Alert, Oriented x3 Neuro Extensive - Motor, Sensory, Reflexes: CN II-XII Intact, Normal Gait Psychiatric: Alert, Normal Affect, Normal Mood - Patient Data Lab Results Last 24 hrs: Laboratory Results - last 24 hr 11/19/19 11/19/19 11/19/19 Range/Units 01:42 01:42 01:42 WBC 9.28 (4.0-11.0) K/uL RBC 4.97 (4.50-5.90) M/uL Hgb 14.4 (13.0-17.0) g/dL Hct 44.0 (38.0-50.0) % MCV 88.5 (80.0-98.0) fL MCH 29.0 (27.0-32.0) pg MCHC 32.7 (31.0-37.0) g/dL RDW Std Deviation 43.2 (28.0-62.0) fl RDW Coeff of [place] 13 (11.0-15.0) % Plt Count 232 (150-400) K/uL MPV 11.30 (7.40-12.00) fL Neut % (Auto) 53.3 (48.0-80.0) % Lymph % (Auto) 33.3 (16.0-40.0) % [place] % (Auto) 10.9 (0.0-15.0) % Eos % (Auto) 1.9 (0.0-7.0) % Baso % (Auto) 0.6 (0.0-1.5) % Neut # (Auto) 4.9 (1.4-5.7) K/uL Lymph # (Auto) 3.1 H (0.6-2.4) K/uL [place] # (Auto) 1.0 H (0.0-0.8) K/uL Eos # (Auto) 0.2 (0.0-0.7) K/uL Baso # (Auto) 0.1 (0.0-0.1) K/uL Nucleated RBC % 0.0 /100WBC Nucleated RBCs # 0 K/uL Sodium 141 (136-148) mmol/L Potassium 3.8 (3.5-5.1) mmol/L Chloride 103 (98-107) mmol/L Carbon Dioxide 25.7 (21.0-32.0) mmol/L BUN 28 H (7.0-18.0) mg/dL Creatinine 1.4 H (0.8-1.3) mg/dL Est Cr Clr Drug Dosing 58.51 mL/min Estimated GFR (MDRD) 51.0 ml/min Glucose 134 H (74-106) mg/dL Hemoglobin A1c 5.9 (4.5-6.2) % Calcium 8.9 (8.5-10.1) mg/dL Total Bilirubin 0.7 (0.2-1.0) mg/dL AST 30 (15-37) IU/L ALT 27 (14-63) IU/L Alkaline Phosphatase 70 (46-116) U/L Troponin I < 0.050 (0.000-0.056) ng/mL Total Protein 6.6 (6.4-8.2) g/dL Albumin 3.3 L (3.4-5.0) g/dL Globulin 3.3 (2.6-4.0) g/dL Albumin/Globulin Ratio 1.0 (0.9-1.6) 11/19/19 Range/Units 07:48 WBC (4.0-11.0) K/uL RBC (4.50-5.90) M/uL Hgb (13.0-17.0) g/dL Hct (38.0-50.0) % MCV (80.0-98.0) fL MCH (27.0-32.0) pg MCHC (31.0-37.0) g/dL RDW Std Deviation (28.0-62.0) fl RDW Coeff of Patricia (11.0-15.0) % Plt Count (150-400) K/uL MPV (7.40-12.00) fL Neut % (Auto) (48.0-80.0) % Lymph % (Auto) (16.0-40.0) % [place] % (Auto) (0.0-15.0) % Eos % (Auto) (0.0-7.0) % Baso % (Auto) (0.0-1.5) % Neut # (Auto) (1.4-5.7) K/uL Lymph # (Auto) (0.6-2.4) K/uL [place] # (Auto) (0.0-0.8) K/uL Eos # (Auto) (0.0-0.7) K/uL Baso # (Auto) (0.0-0.1) K/uL Nucleated RBC % /100WBC Nucleated RBCs # K/uL Sodium (136-148) mmol/L Potassium (3.5-5.1) mmol/L Chloride (98-107) mmol/L Carbon Dioxide (21.0-32.0) mmol/L BUN (7.0-18.0) mg/dL Creatinine (0.8-1.3) mg/dL Est Cr Clr Drug Dosing mL/min Estimated GFR (MDRD) ml/min Glucose (74-106) mg/dL Hemoglobin A1c (4.5-6.2) % Calcium (8.5-10.1) mg/dL Total Bilirubin (0.2-1.0) mg/dL AST (15-37) IU/L ALT (14-63) IU/L Alkaline Phosphatase (46-116) U/L Troponin I < 0.050 (0.000-0.056) ng/mL Total Protein (6.4-8.2) g/dL Albumin (3.4-5.0) g/dL Globulin (2.6-4.0) g/dL Albumin/Globulin Ratio (0.9-1.6) Result Diagrams: 11/19/19 01:42 11/19/19 01:42 EKG INTERPRETATION EKG Date: 11/19/19 Rhythm: NSR Rate (Beats/Min): 64 P-Wave: Present QRS: Normal ST-T: Normal QT: Normal Sepsis Event Note - Evaluation Sepsis Screening Result: No Definite Risk - Focused Exam Vital Signs: Vital Signs Temp Pulse Resp BP BP BP Pulse Ox 11/19/19 08:15 68 16 106/58 L 95 11/19/19 03:01 97.1 F 20 102/57 L 93 L 11/19/19 02:45 68 103/66 94 L 11/19/19 02:31 74 16 112/71 94 L 11/19/19 02:25 97.9 F 70 18 119/72 96 11/19/19 02:24 119/72 11/19/19 02:14 66 20 116/74 95 11/19/19 01:59 68 118/78 94 L 11/19/19 01:46 73 18 136/81 96 11/19/19 01:44 68 136/81 94 L 11/19/19 01:31 96.5 F L 73 20 153/94 H 96 Date Exam was Performed: 11/19/19 Time Exam was Performed: 15:00 - Problem List (1) Chest pain SNOMED Code(s): 06890893 ICD Code: R07.9 - CHEST PAIN, UNSPECIFIED Status: Acute Current Visit: No (2) HTN (hypertension) SNOMED Code(s): 64438628 ICD Code: I10 - ESSENTIAL (PRIMARY) HYPERTENSION Status: Acute Current Visit: Yes (3) HLD (hyperlipidemia) SNOMED Code(s): 04043412 ICD Code: E78.5 - HYPERLIPIDEMIA, UNSPECIFIED Status: Acute Current Visit : Yes (4) PRASHANTH on CPAP SNOMED Code(s): 11387822 ICD Code: G47.33 - OBSTRUCTIVE SLEEP APNEA (ADULT) (PEDIATRIC); Z99.89 - DEPENDENCE ON OTHER ENABLING MACHINES AND DEVICES Status: Acute Current Visit: Yes (5) S/P CABG x 3 SNOMED Code(s): 712978725, 551303272, 145274579 ICD Code: Z95.1 - PRESENCE OF AORTOCORONARY BYPASS GRAFT Status: Acute Current Visit: Yes Problem List Initiated/Reviewed/Updated: Yes Orders Last 24hrs: Active Orders 24 hr Category Date Time Status Admission Status [Patient Status] [ADT] Stat ADT 11/19/19 02:23 Active Cardiac Monitoring [RC] . DIRECTED Care 11/19/19 03:10 Inactive Telemetry Monitoring [Cardiac Monitoring] [RC] . Care 11/19/19 03:12 Active DIRECTED Heart Healthy Diet [DIET] Diet 11/19/19 Breakfast Active TROPONIN I [CHEM] Q6H Lab 11/19/19 13:40 Ordered Acetaminophen [Tylenol] Med 11/19/19 03:10 Active 650 mg PO Q4H PRN Sodium Chloride 0.9% [Saline Flush] Med 11/19/19 01:40 Active 10 ml FLUSH ASDIRECTED PRN Sodium Chloride 0.9% [Saline Flush] Med 11/19/19 01:40 Active 2.5 ml FLUSH ASDIRECTED PRN Saline Lock Insert [OM.PC] Stat Oth 11/19/19 01:40 Ordered Medication Orders Acetaminophen (Tylenol) 650 mg PO Q4H PRN PRN Reason: Pain Sodium Chloride (Saline Flush) 10 ml FLUSH ASDIRECTED PRN PRN Reason: Keep Vein Open Sodium Chloride (Saline Flush) 2.5 ml FLUSH ASDIRECTED PRN PRN Reason: Keep Vein Open Assessment/Plan Comment:: This 64 yea rold male admitted with atypical chest pain 1. Atypical chest pain: - Sounds musculoskeletal in nature, due to elevated risk he was admitted for observation - Troponin x 2 negative. EKG remains SR with no ST elevation - Tenderness on palpation to bilateral axilla - Arrange follow up with Cardiology as outpatient for further evaluation. 2. HTN/CAD/HLD - Continue home ASA, statin, beta cathryn and NO. 3. PRASHANTH: - Continue CPAP Discharge Plan: Patient will be discharged home today. Third troponin negative. No EKG findings. He continues to have tenderness to R axilla, likely musculoskeletal in nature. Encouraged rest, heat or ice therapy. No skin rash noted. No itching to this area. He may also use Tylenol for pain. he is to return to ED or clinic if concerns should arise. Follow up with Keith regarding stress test, clinic will call him to arrange follow up. - Mortality Measure Prognosis:: Good
[2019-11-19 12:01] VITALS: BP 111/71; PULSE 81
== END 2019-11-19 15:25 | disposition home or self-care (01) ==
LOC: MW.ED 01:31 → MW.ICU 02:23 → UNDOADMOB 02:23
PROVIDERS: ADMIT Internal Medicine; ATTEND Internal Medicine
DX: R07.89 Other chest pain (principal); I10 Essential (primary) hypertension; E78.00 Pure hypercholesterolemia, unspecified; E66.9 Obesity, unspecified; E78.5 Hyperlipidemia, unspecified; I25.10 Atherosclerotic heart disease of native coronary artery without angina pectoris; G47.33 Obstructive sleep apnea (adult) (pediatric); Z88.5 Allergy status to narcotic agent; Z88.8 Allergy status to other drugs, medicaments and biological substances; Z87.891 Personal history of nicotine dependence; Z79.899 Other long term (current) drug therapy; Z95.1 Presence of aortocoronary bypass graft; Z99.89 Dependence on other enabling machines and devices; Z68.36 Body mass index [BMI] 36.0-36.9, adult
CPT/HCPCS: 36415; 71045; 80053; 83036; 84484; 85025; 93005; 99285; A9270; G0378; 99284

== ENCOUNTER 2019-11-23 21:17 | Emergency (ER) | payer BC ==
[2019-11-23] MEDS ORDERED: valACYclovir 500 MG Tab PO ONE (21:39)
--- NOTE | 2019-11-23 21:41 | EDM.PDOC ---
ED HPI GENERAL MEDICAL PROBLEM - General Chief Complaint: Skin Complaint Stated Complaint: RIGHT SIDE RASH Time Seen by Provider: 11/23/19 21:40 Source of Information: Reports: Patient History Limitations: Reports: No Limitations - History of Present Illness INITIAL COMMENTS - FREE TEXT/NARRATIVE: Patient 64-year-old male with past medical history of coronary artery disease presenting with a chief complaint of skin rash to the right side of the chest. Patient states that he first noticed pain was seen in the ER several days ago and was discharged. Patient notes that the rash started yesterday and is extremely painful. Patient is applied CBD oil and calamine lotion with only minimal relief. Patient denies any fevers,discharge, any other rashes. Pmhx: Per chart and HPI Pshx: CABG Family Hx: noncontributory Smoking history? no Etoh use? none Drug use? none Comprehensive review of systems performed and otherwise negative. I have reviewed the triage vital signs Const: Well nourished, well developed, appears stated age Eyes: PERRL, no conjunctival injection HENT: NCAT, Neck supple without meningismus CV: RRR, Warm, well-perfused extremities RESP: CTAB, Unlabored respiratory effort GI: soft, non-tender, non-distended, no masses MSK: No gross deformities appreciated Skin: Demonstrates vesicular type rash located in the right thoracic dermatome, no overlying purulence or erythema. Neuro: Alert, wireless engineer II-XII grossly intact. Sensation and motor function of extremities grossly intact. Psych: Appropriate mood and affect Assessment and plan: Patient 64 male presenting with rash to the right side of the torso. Rash consistent with zoster infection. Patient has no overlying superimposed bacterial infection. Patient started on Valtrex in the emergency department. Patient educated on rash precautions. All questions addressed and answered. Patient agrees with plan. - Related Data Allergies Allergy/AdvReac Type Severity Reaction Status Date / Time metoclopramide HCl Allergy Other Verified 11/23/19 21:31 [From Reglan] morphine Allergy Other Verified 11/23/19 21:31 Home Meds: Home Meds Calcium Carbonate [Calcium] 500 mg PO DAILY 08/19/14 [History] Cinnamon Bark [Cinnamon] 500 mg PO ASDIRECTED 08/19/14 [History] Fish Oil/Barnett-3 Fatty Acids [Fish Oil 1,000 MG] 1 gm PO DAILY 08/19/14 [History ] Flaxseed Oil [Flax Oil] 1,000 mg PO DAILY 08/19/14 [History] Magnesium Oxide [Magnesium] 500 mg PO DAILY 08/19/14 [History] Multivitamin [Multivitamins] 1 tab PO DAILY 08/19/14 [History] [place] Extract 250 mg PO DAILY 08/19/14 [History] Vitamin B Complex 1 tab PO DAILY 08/19/14 [History] atenoloL [Atenolol] 12.5 mg PO BEDTIME 08/19/14 [History] atorvaSTATin [Lipitor] 40 mg PO BEDTIME 08/19/14 [History] Lisinopril 10 mg PO QPM 06/24/17 [History] valACYclovir [Valtrex] 1,000 mg PO TID 7 Days #21 tablet 11/23/19 [Rx] Past Medical History HEENT History: Reports: Other (See Below) Other HEENT History: wears glasses Cardiovascular History: Reports: Bypass, CAD, High Cholesterol, Hypertension, PA Other Cardiovascular History: CABG 1998 Respiratory History: Reports: Sleep Apnea, Other (See Below) Other Respiratory History: uses CPAP Gastrointestinal History: Reports: None Genitourinary History: Reports: None Musculoskeletal History: Reports: Arthritis, Fracture Other Musculoskeletal History: hx: fracturing Right Leg and RIght arm, Nose and cracked some ribs Endocrine/Metabolic History: Reports: Obesity/BMI 30+ Hematologic History: Reports: Blood Transfusion(s), Other (See Below) Other Hematologic History: had BT post Surgery - Infectious Disease History Infectious Disease History: Reports: Chicken Pox - Past Surgical History Head Surgeries/Procedures: Reports: None Cardiovascular Surgical History: Reports: Coronary Artery Bypass Other Cardiovascular Surgeries/Procedures: CABG 3 vessels Respiratory Surgical History: Reports: None Musculoskeletal Surgical History: Reports: Knee Replacement Other Musculoskeletal Surgeries/Procedures:: broken hip, left knee replacement Social & Family History - Family History Family Medical History: Noncontributory Cardiac: Reports: CAD, High Cholesterol, Hypertension, PA - Tobacco Use Smoking Status *Q: Never Smoker Second Hand Smoke Exposure: No - Caffeine Use Caffeine Use: Reports: None - Recreational Drug Use Recreational Drug Use: No ED ROS GENERAL - Review of Systems Review Of Systems: See Below ED EXAM, SKIN/RASH Exam: See Below Course - Vital Signs Last Recorded V/S: Last Vital Signs Temp 36.2 C 11/23/19 21:30 Pulse 70 11/23/19 21:48 Resp 18 11/23/19 21:48 BP 115/45 L 11/23/19 21:48 Pulse Ox 98 11/23/19 21:48 - Orders/Labs/Meds Meds: Medications Discontinued Medications Generic Name Dose Route Start Last Admin Trade Name Kaushik PRN Reason Stop Dose Admin Valacyclovir HCl 1,000 mg 11/23/19 21:39 11/23/19 21:48 Valtrex PO 11/23/19 21:40 1,000 mg ONETIME ONE Administration Departure - Departure Time of Disposition: 21:41 Disposition: Home, Self-Care 01 Clinical Impression: Zoster - Discharge Information Prescriptions: valACYclovir [Valtrex] 1,000 mg PO TID 7 Days #21 tablet Instructions: Shingles, [id number] Referrals: Ky Hall MD [Primary Care Provider] - Forms: ED Department Discharge Additional Instructions: The following information is given to patients seen in the emergency department who are being discharged to home. This information is to outline your options for follow-up care. We provide all patients seen in our emergency department with a follow-up referral. The need for follow-up, as well as the timing and circumstances, are variable depending upon the specifics of your emergency department visit. If you don't have a primary care physician on staff, we will provide you with a referral. We always advise you to contact your personal physician following an emergency department visit to inform them of the circumstance of the visit and for follow-up with them and/or the need for any referrals to a consulting specialist. The emergency department will also refer you to a specialist when appropriate. This referral assures that you have the opportunity for follow-up care with a specialist. All of these measure are taken in an effort to provide you with optimal care, which includes your follow-up. Under all circumstances we always encourage you to contact your private physician who remains a resource for coordinating your care. When calling for follow-up care, please make the office aware that this follow-up is from your recent emergency room visit. If for any reason you are refused follow-up, please contact the [facility] Emergency Department at and asked to speak to the emergency department charge nurse. Sepsis Event Note - Evaluation Sepsis Screening Result: No Definite Risk - Focused Exam Vital Signs: Vital Signs Temp Pulse Resp BP Pulse Ox 11/23/19 21:48 70 18 115/45 L 98 11/23/19 21:30 36.2 C 67 18 129/81 98 Date Exam was Performed: 11/23/19 Time Exam was Performed: 23:56
[2019-11-23 21:52] VITALS: BP 115/45; PULSE 70
== END 2019-11-23 21:52 | disposition home or self-care (01) ==
LOC: MW.ED 21:17
DX: B02.9 Zoster without complications (principal); I25.10 Atherosclerotic heart disease of native coronary artery without angina pectoris; E78.00 Pure hypercholesterolemia, unspecified; I10 Essential (primary) hypertension; I25.2 Old myocardial infarction; Z79.899 Other long term (current) drug therapy; Z88.5 Allergy status to narcotic agent; Z88.8 Allergy status to other drugs, medicaments and biological substances
CPT/HCPCS: 99282; A9270

== ENCOUNTER 2023-12-14 21:39 | Emergency (ER) | payer MEDICARE, BC ==
[2023-12-14 21:59] LABS: HEMATOCRIT 42.3 % (42.0-52.0); HEMOGLOBIN 14.2 g/dL (14.0-18.0); MEAN CORPUSCULAR HEMOGLOBIN 29.3 pg (28.0-32.0); MEAN CORPUSCULAR HGB CONC 33.6 g/dL (32.0-36.0); MEAN CORPUSCULAR VOLUME 87.4 fL (83.0-99.0); MEAN PLATELET VOLUME 11.3 fL (9.4-12.4); PLATELET COUNT,PLT 255 K/uL (150-400); RED BLOOD CELL COUNT 4.84 M/uL (4.52-5.90); WHITE BLOOD CELL COUNT,WBC 14.92 K/uL (3.9-11.3)
[2023-12-14] MEDS: Sodium Chloride 0.9% 10 ML Syringe FLUSH PRN (21:59)
[2023-12-14] MEDS: Aspirin 81 MG Tab.Chew PO ONE (21:59)
[2023-12-14] MEDS: Ondansetron 4 MG/2 ML SDV IVPUSH ONE (21:59)
[2023-12-14] MEDS: Sodium Chloride 0.9% 500 ML IV ONE (21:59)
[2023-12-14] MEDS: Sodium Chloride 0.9% 2.5 ML Syringe FLUSH PRN (21:59)
[2023-12-14 22:21] LABS: A/G RATIO 1.1 (0.9-1.6); ALBUMIN 3.3 g/dL (3.4-5.0); BILIRUBIN TOTAL 0.8 mg/dL (0.2-1.0); CALCIUM 8.5 mg/dL (8.5-10.1); CARBON DIOXIDE,CO2 24.8 mmol/L (21.0-32.0); CREATININE 1.3 mg/dL (0.8-1.3); EST CRCL DRUG DOSING (CG) 63.23 mL/min; POTASSIUM,K 3.9 mmol/L (3.5-5.1); PROTEIN TOTAL,TP 6.3 g/dL (6.4-8.2)
[2023-12-14 22:22] LABS: BASOPHILS ABSOLUTE MAN 0.15 K/uL (0.00-0.20); BASOPHILS PERCENT MAN 1 % (0-1); EOSINOPHILS ABSOLUTE MAN 0.15 K/uL (0.00-0.45); EOSINOPHILS PERCENT MAN 1 % (0-6); LYMPHOCYTES ABSOLUTE MAN 6.86 K/uL (1.00-4.80); LYMPHOCYTES PERCENT MAN 46 % (24-44); MONOCYTES ABSOLUTE MAN 1.79 K/uL (0.00-0.80); MONOCYTES PERCENT MAN 12 % (0-8); SEG NEUTROPHILS ABSOLUTE MAN 5.97 K/uL (1.80-7.70); SEG NEUTROPHILS PERCENT MAN 40 % (41-71)
[2023-12-15 00:48] VITALS: BP 103/58
[2023-12-15 02:00] VITALS: PULSE 68
[2023-12-15] MEDS: Enoxaparin 150 MG/1 ML Syringe SUBCUT STA (02:07)
== END 2023-12-15 03:00 ==
LOC: MW.ED 21:39
DX: I25.110 Atherosclerotic heart disease of native coronary artery with unstable angina pectoris (principal); E78.00 Pure hypercholesterolemia, unspecified; I10 Essential (primary) hypertension; I25.2 Old myocardial infarction; Z95.1 Presence of aortocoronary bypass graft; E66.9 Obesity, unspecified; Z79.899 Other long term (current) drug therapy; Z88.8 Allergy status to other drugs, medicaments and biological substances
CPT/HCPCS: 36415; 71045; 80053; 83690; 83880; 84484; 85025; 93005; 96372; 96374; 99285; A9270; J1650; J2405; J3490; J7040; 93010; 99291